=== PATIENT | male | born 1945 | race Caucasian/White ===

== ENCOUNTER 2018-10-23 15:25 | Inpatient (IN) | payer BC, MEDICARE ==
--- NOTE | 2018-10-23 15:42 | ER Document Report ---
ED Medical Screen (RME) - General Chief Complaint: Breathing Difficulty Stated Complaint: SORTNESS OF BREATH Time Seen by Provider: 10/23/18 15:40 Primary Care Provider: DIANNE TOUSSAINT MD [Primary Care Provider] - Follow up as needed Notes: 72-year-old male to the emergency department chief complaint of shortness of breath, cough, fever at home of 102. Currently on chemotherapy for lung cancer. Has history of A. fib as well. I have greeted and performed a rapid initial assessment of this patient. A comprehensive ED assessment and evaluation of the patient, analysis of test results and completion of the medical decision making process will be conducted by additional ED providers. TRAVEL OUTSIDE OF THE [place] IN LAST 30 DAYS: No - Related Data Allergies/Adverse Reactions: No Known Allergies Allergy (Unverified 10/23/18 15:34) Physical Exam - Vital signs Vitals: Temp Pulse Resp BP Pulse Ox 99.5 F 106 H 24 H 140/59 H 98 10/23/18 15:30 10/23/18 15:30 10/23/18 15:30 10/23/18 15:30 10/23/18 15:30 Course - Vital Signs Vital signs: Temp Pulse Resp BP Pulse Ox 99.5 F 106 H 24 H 140/59 H 98 10/23/18 15:30 10/23/18 15:30 10/23/18 15:30 10/23/18 15:30 10/23/18 15:30 Doctor's Discharge - Discharge Referrals: DIANNE TOUSSAINT MD [Primary Care Provider] - Follow up as needed
[2018-10-23 16:29] LABS: HEMATOCRIT 31.3 % (37.9-51.0); HEMOGLOBIN 10.8 g/dL (13.5-17.0); MEAN CORPUSCULAR HEMOGLOBIN 31.3 pg (27.0-33.4); MEAN CORPUSCULAR HGB CONC 34.5 g/dL (32.0-36.0); MEAN CORPUSCULAR VOLUME 91 fl (80-97); RED BLOOD COUNT 3.45 10^6/uL (4.35-5.55); RED CELL DISTRIBUTION WIDTH 19.1 % (11.5-14.0); WHITE BLOOD COUNT 6.3 10^3/uL (4.0-10.5)
[2018-10-23 16:36] LABS: ALANINE AMINOTRANSFERASE 29 U/L (21-72); ALBUMIN 4.5 g/dL (3.5-5.0); ALKALINE PHOSPHATASE 42 U/L (38-126); ANION GAP 15 (5-19); ASPARTATE AMINO TRANSFERASE 34 U/L (17-59); BILIRUBIN,DIRECT 0.3 mg/dL (0.0-0.4); BILIRUBIN,TOTAL 1.1 mg/dL (0.2-1.3); BLOOD UREA NITROGEN 21 mg/dL (7-20); CARBON DIOXIDE 25 mmol/L (22-30); CHLORIDE 95 mmol/L (98-107); GLUCOSE 181 mg/dL (75-110); POTASSIUM 3.5 mmol/L (3.6-5.0); SODIUM 134.9 mmol/L (137-145); TOTAL PROTEIN 7.4 g/dL (6.3-8.2)
[2018-10-23 16:40] LABS: A TYPE INFLUENZA AG NEGATIVE (NEGATIVE); B INFLUENZA AG NEGATIVE (NEGATIVE)
[2018-10-23 16:52] LABS: PLATELET COUNT 98 10^3/uL (150-450)
[2018-10-23 16:54] LABS: ABSOLUTE LYMPHOCYTES# (MANUAL) 0.6 10^3/uL (0.5-4.7); ABSOLUTE MONOCYTES # (MANUAL) 0.5 10^3/uL (0.1-1.4); ABSOLUTE NEUTROPHILS# (MANUAL) 5.2 10^3/uL (1.7-8.2); BAND NEUTROPHILS % (MANUAL) 2 % (3-5); BASOPHILS % (MANUAL) 0 % (0-2); EOSINOPHILS % (MANUAL) 0 % (0-6); LYMPHOCYTES % (MANUAL) 9 % (13-45); MONOCYTES % (MANUAL) 8 % (3-13); SEGMENTED NEUTROPHILS % (MAN) 81 % (42-78); TOTAL CELLS COUNTED 100
[2018-10-23 16:57] LABS: ANISOCYTOSIS 2+; OVALOCYTES SLIGHT; PLATELET COMMENT DECREASED; POIKILOCYTOSIS SLIGHT; POLYCHROMASIA SLIGHT
--- NOTE | 2018-10-23 17:00 | RADIOLOGY REPORT (SQ) ---
EXAM DESCRIPTION: CHEST SINGLE VIEW COMPLETED DATE/TIME: 10/23/2018 4:38 pm REASON FOR STUDY: sob COMPARISON: AP chest 08/28/2008 EXAM PARAMETERS: NUMBER OF VIEWS: One view. TECHNIQUE: Single frontal radiographic view of the chest acquired. RADIATION DOSE: NA LIMITATIONS: None. FINDINGS: LUNGS AND PLEURA: 3 to 4 cm mass versus infiltrate in the medial aspect right upper lobe a long the minor fissure. Remainder of the lungs are grossly clear. No pleural effusion. No pneumothorax. No pulmonary edema . MEDIASTINUM AND HILAR STRUCTURES: No masses. Contour normal. HEART AND VASCULAR STRUCTURES: Mild cardiomegaly BONES: No acute findings. HARDWARE: Left permanent central line tip superior vena cava OTHER: No other significant finding. IMPRESSION: Mass versus infiltrate medial right upper lobe No pulmonary edema, pleural effusion or pneumothorax TECHNICAL DOCUMENTATION: JOB ID: [id number] [employer]- All Rights Reserved Reading location - IP/workstation name: [email or web address]
[2018-10-23] MEDS ORDERED: NORMAL SALINE 1000 ML 1,000 ML IV ONE (17:22)
[2018-10-23] MEDS ORDERED: CEFEPIME 1 GM/D5W RTU 1 GM/50 ML RTUPB IV ONE (17:23)
[2018-10-23] MEDS ORDERED: VANCOMYCIN HCL INJ 1000 MG VIAL IV ONE (17:32)
--- NOTE | 2018-10-23 17:34 | ER Document Report ---
ED General - General Chief Complaint: Breathing Difficulty Stated Complaint: SORTNESS OF BREATH Time Seen by Provider: 10/23/18 15:40 Mode of Arrival: Stretcher Information source: Patient Notes: 72-year-old male with a history of diabetes, hypertension, lung cancer, atrial fibrillation who presents to the emergency room with shortness of breath, fever of 102 and cough for several days. Patient's last chemotherapy was 1 week ago (Tuesday). TRAVEL OUTSIDE OF THE [place] IN LAST 30 DAYS: No - HPI Onset: Last week Onset/Duration: Gradual Quality of pain: No pain Severity: None Pain Level: Denies Associated symptoms: Nonproductive cough, Fever, Shortness of breath Exacerbated by: Movement Relieved by: Remaining still Similar symptoms previously: Yes Recently seen / treated by doctor: Yes - Related Data Allergies/Adverse Reactions: No Known Allergies Allergy (Unverified 10/23/18 15:34) Past Medical History - General Information source: Patient - Social History Smoking Status: Former Smoker Cigarette use (# per day): No Chew tobacco use (# tins/day): No Frequency of alcohol use: Occasional Drug Abuse: None Lives with: Family Family History: None Patient has suicidal ideation: No Patient has homicidal ideation: No - Past Medical History Cardiac Medical History: Reports: Hx Hypertension Pulmonary Medical History: Reports: Other - Lung cancer EENT Medical History: Reports: None Neurological Medical History: Reports: None Endocrine Medical History: Reports: Hx Diabetes Mellitus Type 2 Renal/ Medical History: Reports: None. Denies: Hx Peritoneal Dialysis Malignancy Medical History: Reports Hx Lung Cancer GI Medical History: Reports: None Musculoskeletal Medical History: Reports None Skin Medical History: Reports None Psychiatric Medical History: Reports: None Traumatic Medical History: Reports: None Infectious Medical History: Reports: None Surgical Hx: Negative Review of Systems - Review of Systems Constitutional: Chills, Fever EENT: No symptoms reported Cardiovascular: denies: Chest pain, Palpitations, Heart racing Respiratory: Cough, Short of breath Gastrointestinal: No symptoms reported Genitourinary: No symptoms reported Male Genitourinary: No symptoms reported Musculoskeletal: No symptoms reported Skin: No symptoms reported Hematologic/Lymphatic: No symptoms reported Neurological/Psychological: No symptoms reported Physical Exam - Vital signs Vitals: Temp Pulse Resp BP Pulse Ox 99.5 F 106 H 24 H 140/59 H 98 10/23/18 15:30 10/23/18 15:30 10/23/18 15:30 10/23/18 15:30 10/23/18 15:30 Notes: Physical exam: GENERAL: A 72-year-old man, alert and oriented x3, does appear dyspneic HEAD: Atraumatic, normocephalic. EYES: Pupils equal round and reactive to light, extraocular movements intact, sclera anicteric, conjunctiva are normal. ENT: TMs normal, nares patent, oropharynx clear without exudates. dry mucous membranes. NECK: Normal range of motion, supple without obvious mass or JVD. LUNGS: Breath sounds clear to auscultation bilaterally and equal. No wheezes rales or rhonchi. HEART: Regular rate and rhythm without murmurs, rubs or gallops. ABDOMEN: Soft, normoactive bowel sounds. No tenderness to palpation. No guarding, no rebound. No masses appreciated. EXTREMITIES: Normal range of motion, no pitting or edema. No clubbing or cyanosis. NEUROLOGICAL: Cranial nerves II through XII grossly intact. Normal speech, moving all extremities. PSYCH: Normal mood, normal affect. SKIN: Warm, Dry, normal turgor, no rashes or lesions noted. Course - Re-evaluation Re-evalutation: 10/23/18 23:51 Note: This is a 72-year-old man with a history of lung cancer status post recent chemotherapy that is presenting with cough, shortness of breath, fever. Concern clearly is some postobstructive pneumonia in the setting of immune compromise. He does appear dehydrated at this time. Plan will be for IV fluids, IV antibiotics and admission. - Vital Signs Vital signs: Temp Pulse Resp BP Pulse Ox 98.8 F 82 20 110/52 L 99 10/23/18 21:22 10/23/18 21:22 10/23/18 21:22 10/23/18 21:22 10/23/18 21:22 - Laboratory Result Diagrams: 10/23/18 16:10 10/23/18 16:10 Laboratory results interpreted by me: 10/23/18 10/23/18 10/23/18 16:10 16:10 16:10 RBC 3.45 L Hgb 10.8 L Hct 31.3 L RDW 19.1 H Plt Count 98 L Seg Neuts % (Manual) 81 H Band Neutrophils % 2 L Lymphocytes % (Manual) 9 L Sodium 134.9 L Potassium 3.5 L Chloride 95 L BUN 21 H Glucose 181 H Lactic Acid 3.1 H - Diagnostic Test Radiology reviewed: Image reviewed, Reports reviewed - Chest x-ray shows right mass/infiltrate - EKG Interpretation by Me Rate: Normal Rhythm: NSR - EKG shows normal sinus rhythm with a ventricular rate of 91, no acute ST-T wave changes Critical Care Note - Critical Care Note Total time excluding time spent on procedures (mins): 60 Discharge - Discharge Clinical Impression: Pneumonia Condition: Stable Disposition: ADMITTED INPATIENT Admitting Provider: Hospitalist Ashleigh Arnold Unit Admitted: Telemetry
--- NOTE | 2018-10-23 18:22 | EKG REPORT ---
SEVERITY:- ABNORMAL ECG - SINUS RHYTHM PROBABLE LEFT ATRIAL ABNORMALITY PROLONGED QT INTERVAL : Confirmed by: Rebeka Mathews 23-Oct-2018 18:22:13
[2018-10-23] MEDS ORDERED: ACETAMINOPHEN 325 MG TABLET PO PRN (19:03)
[2018-10-23] MEDS ORDERED: NORMAL SALINE 1000 ML 1,000 ML IV PRN (19:03)
[2018-10-23] MEDS ORDERED: IPRATROPIUM/ALBUTEROL 0.5-2.5 MG/3 ML AMPUL NEB PRN (19:03)
[2018-10-23] MEDS ORDERED: HYDRALAZINE HCL INJ/PF 20 MG/1 ML SDV IV PRN (19:13)
[2018-10-23] MEDS ORDERED: POTASSIUM CHLORIDE 10 MEQ CAPSULE.ER PO ONE (19:27)
--- NOTE | 2018-10-23 19:30 | PDOC H&P ---
History of Present Illness Admission Date/PCP: 10/23/18 17:38 RUBEN SINCLAIR NP Patient complains of: Short of breath History of Present Illness: DUC HERNANDEZ is a 72 year old male with a past medical history of hypertension, diabetes type 2, hyperlipidemia and lung cancer, who presented to the ED complaining of shortness of breath and congestion for a few days. Patient states that he started coughing a few days ago and it worsened. That he also has been having fevers for the last few days and even over a week but it has been intermittent. States his temperature this morning was 103F and hence he came to the ER for evaluation because his cancer doctor told him to do so. He is not a good historian but he is able to tell me that he has a history of lung cancer and is being treated at [facility] by his oncologist. He had chemo about 2 weeks ago. He does not know the name of the chemotherapy that was used. At this time he is feeling more short of breath and having some dyspnea with exertion. Fortunately he is not requiring any oxygen. He had a chest x-ray in the ED which shows a mass versus infiltrate on the right upper lobe. Unfortunately that is where his cancer is also. But given his symptoms he suspected that he has pneumonia and hence hospitalist were consulted. Past Medical History Cardiac Medical History: Reports: Hyperlipidema, Hypertension Endocrine Medical History: Reports: Diabetes Mellitus Type 2 Social History Information Source: Patient Smoking Status: Former Smoker - Advance Directive Resuscitation Status: Full Code Surrogate healthcare decision maker:: Brother Family History Parental Family History Reviewed: Yes Children Family History Reviewed: Unknown Sibling(s) Family History Reviewed.: Unknown Medication/Allergy Home Medications: Amlodipine Besylate [Norvasc 5 mg Tablet] 5 mg PO DAILY 10/23/18 Hydrochlorothiazide [Hydrodiuril 25 mg Tablet] 25 mg PO QAM 10/23/18 Losartan Potassium [Cozaar 100 mg Tablet] 100 mg PO DAILY 10/23/18 Simvastatin [Zocor 20 mg Tablet] 20 mg PO QHS 10/23/18 Allergies/Adverse Reactions: No Known Allergies Allergy (Unverified 10/23/18 15:34) Review of Systems All systems: reviewed and no additional remarkable complaints except as stated Constitutional: PRESENT: chills, fever(s) Eyes: ABSENT: visual disturbances Ears: ABSENT: hearing changes Nose, Mouth, and Throat: ABSENT: headache(s) Cardiovascular: PRESENT: dyspnea on exertion. ABSENT: edema Respiratory: PRESENT: cough, dyspnea Gastrointestinal: ABSENT: abdominal pain, nausea, vomiting Genitourinary: ABSENT: dysuria Musculoskeletal: ABSENT: joint swelling Integumentary: ABSENT: wounds Neurological: ABSENT: abnormal movements, frequent falls, vertigo Endocrine: ABSENT: polyuria Hematologic/Lymphatic: ABSENT: easy bruising Physical Exam Vital Signs: Temp Pulse Resp BP Pulse Ox 99.9 F 106 H 18 120/75 97 10/23/18 17:37 10/23/18 15:30 10/23/18 19:01 10/23/18 19:00 10/23/18 19:01 Intake & Output 10/22/18 10/23/18 10/24/18 06:59 06:59 06:59 Intake Total 50 Balance 50 Weight 221 lb 9.033 oz General appearance: PRESENT: no acute distress Head exam: PRESENT: atraumatic, normocephalic Eye exam: PRESENT: EOMI. ABSENT: conjunctival injection, scleral icterus Ear exam: PRESENT: normal external ear exam Mouth exam: PRESENT: moist, tongue midline Neck exam: ABSENT: tracheal deviation Respiratory exam: PRESENT: decreased breath sounds - Decreased on the right side lower base, symmetrical. ABSENT: wheezes Cardiovascular exam: PRESENT: +S1, +S2 Pulses: PRESENT: +2 pedal pulses bilateral GI/Abdominal exam: PRESENT: normal bowel sounds, soft. ABSENT: tenderness Extremities exam: ABSENT: pedal edema Neurological exam: PRESENT: alert, awake, oriented to person, oriented to place, CN II-XII grossly intact Skin exam: PRESENT: dry, warm Results Laboratory Results: 10/23/18 16:10 10/23/18 16:10 10/23/18 10/23/18 10/23/18 16:10 16:10 16:10 WBC 6.3 RBC 3.45 L Hgb 10.8 L Hct 31.3 L MCV 91 MCH 31.3 MCHC 34.5 RDW 19.1 H Plt Count 98 L Seg Neutrophils % Not Reportable Lymphocytes % Not Reportable Monocytes % Not Reportable Eosinophils % Not Reportable Basophils % Not Reportable Absolute Neutrophils Not Reportable Absolute Lymphocytes Not Reportable Absolute Monocytes Not Reportable Absolute Eosinophils Not Reportable Absolute Basophils Not Reportable Sodium 134.9 L Potassium 3.5 L Chloride 95 L Carbon Dioxide 25 Anion Gap 15 BUN 21 H Creatinine 1.00 Est GFR ( Amer) > 60 Est GFR (Non-Af Amer) > 60 Glucose 181 H Lactic Acid 3.1 H Calcium 9.0 Total Bilirubin 1.1 AST 34 ALT 29 Alkaline Phosphatase 42 Total Protein 7.4 Albumin 4.5 Impressions: Chest X-Ray 10/23/18 15:53 IMPRESSION: Mass versus infiltrate medial right upper lobe No pulmonary edema, pleural effusion or pneumothorax Assessment & Plan - Diagnosis (1) Pneumonia Is this a current diagnosis for this admission?: Yes (2) Essential hypertension Is this a current diagnosis for this admission?: Yes (3) Hyperlipemia Is this a current diagnosis for this admission?: Yes (4) Lung cancer Is this a current diagnosis for this admission?: Yes (5) Hyponatremia Is this a current diagnosis for this admission?: Yes (6) Hypokalemia Is this a current diagnosis for this admission?: Yes (7) Generalized weakness Is this a current diagnosis for this admission?: Yes (8) Pancytopenia due to chemotherapy Is this a current diagnosis for this admission?: Yes - Time Time Spent: Greater than 70 Minutes - Inpatient Certification Based on my medical assessment, after consideration of the patient's comorbidities, presenting symptoms, or acuity I expect that the services needed warrant INPATIENT care.: Yes I certify that my determination is in accordance with my understanding of Medicare's requirements for reasonable and necessary INPATIENT services [42 CFR 412.3e].: Yes Medical Necessity: Need Close Monitoring Due to Risk of Patient Decompensation, Need For IV Fluids, Need For Continuous Telemetry Monitoring, Risk of Complication if Not Cared For in Hospital - Plan Summary Plan Summary: Pneumonia-patient complaining of cough, fevers and shortness of breath, lactic acid greater than 3.1. Although his white count is not elevated he did receive chemo about 2 weeks ago. He has a history of lung cancer and is receiving chemo at [facility]. At this point I will start him on broad-spectrum antibiotics. Cefepime and vancomycin. Blood cultures are drawn and pending. Chest x-ray does show some right upper lobe mass versus infiltrate. Difficult to tell whether this is infiltrate or mass since his lung cancer is also on the right upper lobe. Lung cancer-he follows up with oncology at [facility]. I have consulted and spoke with and she will be seeing patient tomorrow. I will try my best to get his records from [facility]. Pancytopenia-most likely secondary to chemo. Hyponatremia-most likely from dehydration-we will start him on gentle hydration overnight Hypokalemia-will replete as needed. Hypertension-medications not reconciled-we will place hydralazine as needed order Hyperlipidemia-noted Generalized weakness-we will consider getting physical therapy evaluation once he is a little bit improved from his pneumonia
[2018-10-23] MEDS: GUAIFENESIN 600 MG TABLET.SA PO SCH (22:44)
[2018-10-23] MEDS: HEPARIN SOD (PORCINE) 5,000 UNIT/ML 1 ML SYRINGE SUBCUT SCH (22:44)
[2018-10-23] MEDS: FAMOTIDINE 20 MG TABLET PO SCH (22:44)
[2018-10-24 00:46] LABS: APPEARANCE,URINE SLIGHTLY-CLOUDY; BILIRUBIN,URINE NEGATIVE (NEGATIVE); COLOR,URINE YELLOW; GLUCOSE, URINE NEGATIVE (NEGATIVE); KETONES,URINE NEGATIVE (NEGATIVE); LEUKOCYTE ESTERASE,URINE TRACE (NEGATIVE); NITRITE,URINE NEGATIVE (NEGATIVE); PROTEIN,URINE 30 mg/dL (NEGATIVE); URINE SPECIFIC GRAVITY 1.011; UROBILINOGEN,URINE NEGATIVE mg/dL (<2.0)
[2018-10-24] MEDS ORDERED: CEFEPIME 1 GM/D5W RTU 1 GM/50 ML RTUPB IV ONE (02:45)
[2018-10-24] MEDS: CEFEPIME 1 GM/D5W RTU 1 GM/50 ML RTUPB IV SCH ×2 (06:23→18:14)
[2018-10-24] MEDS: HEPARIN SOD (PORCINE) 5,000 UNIT/ML 1 ML SYRINGE SUBCUT SCH ×3 (06:24→22:04)
[2018-10-24 06:39] LABS: ABSOLUTE LYMPHOCYTES (AUTO) 0.8 10^3/uL (0.5-4.7); ABSOLUTE MONOCYTES (AUTO) 1.3 10^3/uL (0.1-1.4); ABSOLUTE NEUT (AUTO) 5.7 10^3/uL (1.7-8.2); BASOPHILS % (AUTO) 0.1 % (0-2); EOSINOPHILS % (AUTO) 0.1 % (0-6); HEMATOCRIT 26.1 % (37.9-51.0); HEMOGLOBIN 9.2 g/dL (13.5-17.0); LYMPHOCYTES % (AUTO) 9.7 % (13-45); MEAN CORPUSCULAR HEMOGLOBIN 31.8 pg (27.0-33.4); MEAN CORPUSCULAR HGB CONC 35.2 g/dL (32.0-36.0); MEAN CORPUSCULAR VOLUME 91 fl (80-97); MONOCYTES % (AUTO) 16.4 % (3-13); RED BLOOD COUNT 2.88 10^6/uL (4.35-5.55); RED CELL DISTRIBUTION WIDTH 19.4 % (11.5-14.0); SEGMENTED NEUTROPHILS % (AUTO) 73.7 % (42-78); TOTAL CELLS COUNTED % (AUTO) 100 %; WHITE BLOOD COUNT 7.8 10^3/uL (4.0-10.5)
[2018-10-24] MEDS ORDERED: VANCOMYCIN HCL 1,500 MG in DEXTROSE 5%-WATER 250 ML IV SCH (07:00)
[2018-10-24 07:03] LABS: PLATELET COUNT 83 10^3/uL (150-450)
[2018-10-24 07:15] LABS: ANION GAP 6 (5-19); BLOOD UREA NITROGEN 18 mg/dL (7-20); CALCIUM 8.6 mg/dL (8.4-10.2); CARBON DIOXIDE 29 mmol/L (22-30); CHLORIDE 102 mmol/L (98-107); GLUCOSE 131 mg/dL (75-110); POTASSIUM 3.7 mmol/L (3.6-5.0); SODIUM 136.8 mmol/L (137-145)
--- NOTE | 2018-10-24 09:20 | PDOC CONSULTATION ---
Consultation Consult Date: 10/24/18 Consult reason:: Hematology/Oncology consulatation was requested for patient actively undergoing treatment for lung cancer. History of Present Illness Admission Date/PCP: 10/23/18 17:38 RUBEN SINCLAIR NP History of Present Illness: DUC HERNANDEZ is a 72 year old male who states that he was initially diagnosed with bladder and prostate cancers in 2009. These were treated, but in March 2018, during routine surveillance CT scans, a new lung lesion was found. It was determined that this was a new primary and he has just completed chemotherapy with a doublet, but he is unsure which 2 drugs. He is scheduled to begin immunotherapy later this week. He is seeing a physician at [facility] Past Medical History Cardiac Medical History: Reports: Hyperlipidema, Hypertension Pulmonary Medical History: Reports: Other - Lung cancer EENT Medical History: Reports: None Neurological Medical History: Reports: None Endocrine Medical History: Reports: Diabetes Mellitus Type 2 Renal/ Medical History: Reports: None Malignancy Medical History: Reports: Lung Cancer, Other - Bladder and prostate cancer GI Medical History: Reports: None Musculoskeltal Medical History: Reports: None Skin Medical History: Reports: None Psychiatric Medical History: Reports: None Denies: Depression Traumatic Medical History: Reports: None Infectious Medical History: Reports: None Past Surgical History Past Surgical History: Reports: Other - ORIF ankle, knee surgery, prostatectomy, bladder surgery, lung resection Social History Lives with: Family Smoking Status: Former Smoker Last Time Smoked: 2009 Frequency of Alcohol Use: Rare Hx Recreational Drug Use: No Drugs: None Hx Prescription Drug Abuse: No Past Social History Note: with 1 child. Retired restaurant civil structural designer. Cat at home. - Advance Directive Resuscitation Status: Full Code Family History Family History: None Parental Family History Reviewed: Yes - Father age 43 Cirrhosis. Mother of alzheimers Children Family History Reviewed: No Sibling(s) Family History Reviewed.: Yes - 2 sisters with unknown cancers Medication/Allergy Home Medications: Amlodipine Besylate [Norvasc 5 mg Tablet] 5 mg PO DAILY 10/23/18 Hydrochlorothiazide [Hydrodiuril 25 mg Tablet] 25 mg PO QAM 10/23/18 Losartan Potassium [Cozaar 100 mg Tablet] 100 mg PO DAILY 10/23/18 Metformin HCl 1,000 mg PO BID 10/23/18 Simvastatin [Zocor 20 mg Tablet] 20 mg PO QHS 10/23/18 Allergies/Adverse Reactions: No Known Allergies Allergy (Unverified 10/23/18 15:34) Review of Systems Constitutional: PRESENT: fever(s). ABSENT: headache(s) Eyes: ABSENT: visual disturbances Ears: ABSENT: hearing changes Nose, Mouth, and Throat: ABSENT: sore throat Cardiovascular: ABSENT: chest pain Respiratory: PRESENT: dyspnea Gastrointestinal: ABSENT: diarrhea, nausea Genitourinary: ABSENT: dysuria Integumentary: ABSENT: rash Neurological: ABSENT: dizziness, weakness Hematologic/Lymphatic: ABSENT: lymphadenopathy Physical Exam Vital Signs: Temp Pulse Resp BP Pulse Ox 98.2 F 71 18 101/47 L 94 10/24/18 07:19 10/24/18 08:13 10/24/18 08:13 10/24/18 07:19 10/24/18 08:13 Intake & Output 10/23/18 10/24/18 10/25/18 06:59 06:59 06:59 Intake Total 1050 50 Balance 1050 50 Weight 101.2 kg General appearance: PRESENT: no acute distress, well-developed, well-nourished Exam: 72 year old male. Head exam: PRESENT: normocephalic Eye exam: PRESENT: EOMI Mouth exam: PRESENT: tongue midline Neck exam: ABSENT: lymphadenopathy, tenderness Respiratory exam: PRESENT: clear to auscultation javad, unlabored Cardiovascular exam: PRESENT: RRR GI/Abdominal exam: PRESENT: soft. ABSENT: tenderness Extremities exam: ABSENT: pedal edema Neurological exam: PRESENT: alert, awake, oriented to person, oriented to place, oriented to time, oriented to situation Psychiatric exam: PRESENT: appropriate affect Skin exam: PRESENT: normal color Results Laboratory Results: 10/24/18 06:08 10/24/18 06:08 10/23/18 10/23/18 10/23/18 16:10 16:10 16:10 WBC 6.3 RBC 3.45 L Hgb 10.8 L Hct 31.3 L MCV 91 MCH 31.3 MCHC 34.5 RDW 19.1 H Plt Count 98 L Seg Neutrophils % Not Reportable Lymphocytes % Not Reportable Monocytes % Not Reportable Eosinophils % Not Reportable Basophils % Not Reportable Absolute Neutrophils Not Reportable Absolute Lymphocytes Not Reportable Absolute Monocytes Not Reportable Absolute Eosinophils Not Reportable Absolute Basophils Not Reportable Sodium 134.9 L Potassium 3.5 L Chloride 95 L Carbon Dioxide 25 Anion Gap 15 BUN 21 H Creatinine 1.00 Est GFR ( Amer) > 60 Est GFR (Non-Af Amer) > 60 Glucose 181 H Lactic Acid 3.1 H Calcium 9.0 Total Bilirubin 1.1 AST 34 ALT 29 Alkaline Phosphatase 42 Total Protein 7.4 Albumin 4.5 Urine Color Urine Appearance Urine pH Ur Specific [place] Urine Protein Urine Glucose (UA) Urine Ketones Urine Blood Urine Nitrite Ur Leukocyte Esterase Urine WBC (Auto) Urine RBC (Auto) 10/23/18 10/24/18 10/24/18 21:35 00:25 00:58 WBC RBC Hgb Hct MCV MCH MCHC RDW Plt Count Seg Neutrophils % Lymphocytes % Monocytes % Eosinophils % Basophils % Absolute Neutrophils Absolute Lymphocytes Absolute Monocytes Absolute Eosinophils Absolute Basophils Sodium Potassium Chloride Carbon Dioxide Anion Gap BUN Creatinine Est GFR ( Amer) Est GFR (Non-Af Amer) Glucose Lactic Acid 1.6 1.2 Calcium Total Bilirubin AST ALT Alkaline Phosphatase Total Protein Albumin Urine Color YELLOW Urine Appearance SLIGHTLY-CLOUDY Urine pH 8.0 Ur Specific [place] 1.011 Urine Protein 30 H Urine Glucose (UA) NEGATIVE Urine Ketones NEGATIVE Urine Blood SMALL H Urine Nitrite NEGATIVE Ur Leukocyte Esterase TRACE H Urine WBC (Auto) 3 Urine RBC (Auto) 1 10/24/18 10/24/18 06:08 06:08 WBC 7.8 RBC 2.88 L Hgb 9.2 L Hct 26.1 L MCV 91 MCH 31.8 MCHC 35.2 RDW 19.4 H Plt Count 83 L Seg Neutrophils % 73.7 Lymphocytes % 9.7 L Monocytes % 16.4 H Eosinophils % 0.1 Basophils % 0.1 Absolute Neutrophils 5.7 Absolute Lymphocytes 0.8 Absolute Monocytes 1.3 Absolute Eosinophils 0.0 Absolute Basophils 0.0 Sodium 136.8 L Potassium 3.7 Chloride 102 Carbon Dioxide 29 Anion Gap 6 BUN 18 Creatinine 0.97 Est GFR ( Amer) > 60 Est GFR (Non-Af Amer) > 60 Glucose 131 H Lactic Acid Calcium 8.6 Total Bilirubin AST ALT Alkaline Phosphatase Total Protein Albumin Urine Color Urine Appearance Urine pH Ur Specific [place] Urine Protein Urine Glucose (UA) Urine Ketones Urine Blood Urine Nitrite Ur Leukocyte Esterase Urine WBC (Auto) Urine RBC (Auto) Impressions: Chest X-Ray 10/23/18 15:53 IMPRESSION: Mass versus infiltrate medial right upper lobe No pulmonary edema, pleural effusion or pneumothorax Assessment & Plan - Diagnosis (1) Lung cancer Is this a current diagnosis for this admission?: Yes Plan: I am trying to obtain medical records for more detail as to treatment, stage, and type of cancer. (2) Fever Qualifiers: Fever type: unspecified Qualified Code(s): R50.9 - Fever, unspecified Is this a current diagnosis for this admission?: Yes Plan: Agree with cultures and antibiotics. Unclear at this time if this is due to infection or to chemo agents. Patient is not currently neutropenic, so would treat as per community acquired. Flu screen was negative. I will stop the vanc and change cefapime as soon as cultures are back.
[2018-10-24] MEDS: GUAIFENESIN 600 MG TABLET.SA PO SCH ×2 (11:11→22:06)
[2018-10-24] MEDS: FAMOTIDINE 20 MG TABLET PO SCH ×2 (11:11→22:06)
[2018-10-24] MEDS ORDERED: VANCOMYCIN HCL 0 MG in DEXTROSE 5%-WATER 250 ML IV NR (16:00)
[2018-10-24] MEDS ORDERED: DEXTROSE 50%-WATER SYRINGE 25 GM/50 ML DOSE IV PRN (17:00)
[2018-10-24] MEDS ORDERED: DEXTROSE 50%-WATER SYRINGE 12.5 GM/25 ML DOSE IV PRN (17:00)
[2018-10-24] MEDS ORDERED: GLUCAGON,HUMAN RECOMB 1 MG INJ IM PRN (17:00)
[2018-10-24] MEDS ORDERED: DEXTROSE 40% GEL 15 GM TUBE PO PRN (17:00)
[2018-10-24] MEDS ORDERED: DEXTROSE 40% GEL 15 GM TUBE X 2 PO PRN (17:00)
[2018-10-24] MEDS ORDERED: INSULIN LISPRO 100 UNIT/ML 3 ML VIAL SUBCUT ONE (18:00)
--- NOTE | 2018-10-24 18:23 | RADIOLOGY REPORT (SQ) ---
EXAM DESCRIPTION: CHEST SINGLE VIEW COMPLETED DATE/TIME: 10/24/2018 5:52 pm REASON FOR STUDY: Pneumonia, chest mass COMPARISON: Previous day. NUMBER OF VIEWS: One view. TECHNIQUE: Single frontal radiographic image of the chest acquired. LIMITATIONS: None. FINDINGS: LUNGS AND PLEURA: Slight improved aeration left lower lobe. Unchanged right lung mass. MEDIASTINUM AND HEART: Stable heart size and mediastinal structures. SUPPORT DEVICES: Appropriate location without change. BONY STRUCTURES: No acute findings. HARDWARE: None. OTHER: No other significant finding. IMPRESSION: Improving pneumonia left lower lobe. Reading location - IP/workstation name: [email or web address]
[2018-10-24] MEDS ORDERED: GUAIFENESIN/D-METHORPHAN (200-20 MG) SYRUP 10 ML PO PRN (18:36)
[2018-10-24] MEDS: INSULIN LISPRO 100 UNIT/ML 3 ML VIAL SUBCUT SCH (22:04)
--- NOTE | 2018-10-24 23:22 | PDOC PROGRESS REPORT ---
Subjective Progress Note for:: 10/24/18 Subjective:: Patient is feeling somewhat better. Still with a cough. Worried about his diabetes as well as his pressure. Reason For Visit: PNEUMONIA Physical Exam Vital Signs: Temp Pulse Resp BP Pulse Ox 98.7 F 53 L 18 110/61 96 10/24/18 20:42 10/24/18 20:42 10/24/18 20:42 10/24/18 20:42 10/24/18 20:42 Intake & Output 10/23/18 10/24/18 10/25/18 06:59 06:59 06:59 Intake Total 1050 4300 Output Total 1820 Balance 1050 2480 Weight 101.2 kg General appearance: PRESENT: no acute distress, cooperative Head exam: PRESENT: normocephalic Respiratory exam: PRESENT: symmetrical, unlabored. ABSENT: accessory muscle use, rales, rhonchi, wheezes Cardiovascular exam: PRESENT: RRR, +S1, +S2 GI/Abdominal exam: PRESENT: normal bowel sounds, soft. ABSENT: distended, tenderness Extremities exam: ABSENT: pedal edema Neurological exam: PRESENT: alert, awake, oriented to person, oriented to place, oriented to time, oriented to situation, CN II-XII grossly intact Psychiatric exam: PRESENT: appropriate affect, normal mood. ABSENT: agitated, anxious Focused psych exam: ABSENT: restlessness Results Laboratory Results: 10/24/18 06:08 10/24/18 06:08 10/24/18 10/24/18 10/24/18 00:25 00:58 06:08 WBC 7.8 RBC 2.88 L Hgb 9.2 L Hct 26.1 L MCV 91 MCH 31.8 MCHC 35.2 RDW 19.4 H Plt Count 83 L Seg Neutrophils % 73.7 Lymphocytes % 9.7 L Monocytes % 16.4 H Eosinophils % 0.1 Basophils % 0.1 Absolute Neutrophils 5.7 Absolute Lymphocytes 0.8 Absolute Monocytes 1.3 Absolute Eosinophils 0.0 Absolute Basophils 0.0 Sodium Potassium Chloride Carbon Dioxide Anion Gap BUN Creatinine Est GFR ( Amer) Est GFR (Non-Af Amer) Glucose Lactic Acid 1.2 Calcium Urine Color YELLOW Urine Appearance SLIGHTLY-CLOUDY Urine pH 8.0 Ur Specific [place] 1.011 Urine Protein 30 H Urine Glucose (UA) NEGATIVE Urine Ketones NEGATIVE Urine Blood SMALL H Urine Nitrite NEGATIVE Ur Leukocyte Esterase TRACE H Urine WBC (Auto) 3 Urine RBC (Auto) 1 10/24/18 06:08 WBC RBC Hgb Hct MCV MCH MCHC RDW Plt Count Seg Neutrophils % Lymphocytes % Monocytes % Eosinophils % Basophils % Absolute Neutrophils Absolute Lymphocytes Absolute Monocytes Absolute Eosinophils Absolute Basophils Sodium 136.8 L Potassium 3.7 Chloride 102 Carbon Dioxide 29 Anion Gap 6 BUN 18 Creatinine 0.97 Est GFR ( Amer) > 60 Est GFR (Non-Af Amer) > 60 Glucose 131 H Lactic Acid Calcium 8.6 Urine Color Urine Appearance Urine pH Ur Specific [place] Urine Protein Urine Glucose (UA) Urine Ketones Urine Blood Urine Nitrite Ur Leukocyte Esterase Urine WBC (Auto) Urine RBC (Auto) Impressions: Chest X-Ray 10/24/18 00:00 IMPRESSION: Improving pneumonia left lower lobe. Assessment & Plan - Diagnosis (1) Pneumonia Qualifiers: Pneumonia type: due to methicillin-resistant Staphylococcus aureus (MRSA) Is this a current diagnosis for this admission?: Yes Plan: Continue current antibiotic regimen. The patient is clinically improving. Unfortunately due to recent leukopenia it is difficult to estimate his improvement based on white blood cell count. He has been afebrile. (2) Lung cancer Qualifiers: Laterality: right Is this a current diagnosis for this admission?: Yes Plan: The patient was seen by Dr. Sandhu. She is trying to get medical records. He had recent chemotherapy and she will likely discuss with his primary oncologist the patient's current status. (3) Diabetes mellitus type 2, controlled Qualifiers: Diabetes mellitus longterm insulin use: with adjunct faculty for medical terminology use Diabetes mellitus complication status: without complication Qualified Code(s): E11.9 - Type 2 diabetes mellitus without complications; Z79.4 - terminal block assembler (current) use of insulin Is this a current diagnosis for this admission?: Yes Plan: I will add back his metformin at 500 mg twice daily which is half of his normal dose. He is also on a sliding scale. I will review the Accu-Cheks and increase the metformin back to 1 g twice daily if appropriate. - Time Time Spent with patient: 25-34 minutes - During the encounter the patient did call his daughter who is a nurse in [place]. All questions were answered. She is in agreement with the current plan. Medications reviewed and adjusted accordingly: Yes Anticipated discharge: Home
[2018-10-25] MEDS: HEPARIN SOD (PORCINE) 5,000 UNIT/ML 1 ML SYRINGE SUBCUT SCH ×2 (06:21→14:53)
[2018-10-25] MEDS: CEFEPIME 1 GM/D5W RTU 1 GM/50 ML RTUPB IV SCH (06:23)
[2018-10-25 07:33] LABS: ABSOLUTE LYMPHOCYTES (AUTO) 0.8 10^3/uL (0.5-4.7); ABSOLUTE MONOCYTES (AUTO) 0.9 10^3/uL (0.1-1.4); ABSOLUTE NEUT (AUTO) 5.8 10^3/uL (1.7-8.2); BASOPHILS % (AUTO) 0.2 % (0-2); EOSINOPHILS % (AUTO) 0.3 % (0-6); HEMOGLOBIN 9.3 g/dL (13.5-17.0); LYMPHOCYTES % (AUTO) 10.3 % (13-45); MEAN CORPUSCULAR HEMOGLOBIN 32.1 pg (27.0-33.4); MEAN CORPUSCULAR HGB CONC 35.6 g/dL (32.0-36.0); MEAN CORPUSCULAR VOLUME 90 fl (80-97); MONOCYTES % (AUTO) 12.4 % (3-13); RED BLOOD COUNT 2.89 10^6/uL (4.35-5.55); RED CELL DISTRIBUTION WIDTH 19.8 % (11.5-14.0); SEGMENTED NEUTROPHILS % (AUTO) 76.8 % (42-78); TOTAL CELLS COUNTED % (AUTO) 100 %; WHITE BLOOD COUNT 7.5 10^3/uL (4.0-10.5)
[2018-10-25 07:37] LABS: ANION GAP 9 (5-19); BLOOD UREA NITROGEN 17 mg/dL (7-20); CALCIUM 8.5 mg/dL (8.4-10.2); CARBON DIOXIDE 23 mmol/L (22-30); CHLORIDE 104 mmol/L (98-107); GLUCOSE 123 mg/dL (75-110); POTASSIUM 3.7 mmol/L (3.6-5.0); SODIUM 136.2 mmol/L (137-145)
[2018-10-25] MEDS: INSULIN LISPRO 100 UNIT/ML 3 ML VIAL SUBCUT SCH ×2 (07:51→12:13)
[2018-10-25] MEDS ORDERED: METFORMIN HCL 500 MG TABLET PO SCH (08:00)
[2018-10-25 08:05] LABS: PLATELET COUNT 83 10^3/uL (150-450)
--- NOTE | 2018-10-25 08:56 | PDOC PROGRESS REPORT ---
Subjective Progress Note for:: 10/25/18 Subjective:: No acute events overnight, pt feeling better Reason For Visit: PNEUMONIA Physical Exam Vital Signs: Temp Pulse Resp BP Pulse Ox 97.6 F 73 22 H 98/76 L 99 10/25/18 07:57 10/25/18 07:57 10/25/18 07:57 10/25/18 07:57 10/25/18 07:57 Intake & Output 10/24/18 10/25/18 10/26/18 06:59 06:59 06:59 Intake Total 1050 4300 50 Output Total 1820 Balance 1050 2480 50 Weight 101.2 kg 102.7 kg General appearance: PRESENT: no acute distress, well-developed, well-nourished Head exam: PRESENT: atraumatic, normocephalic Eye exam: PRESENT: conjunctiva pink, EOMI, PERRLA. ABSENT: scleral icterus Ear exam: PRESENT: normal external ear exam Mouth exam: PRESENT: moist, tongue midline Neck exam: ABSENT: carotid bruit, JVD, lymphadenopathy, thyromegaly Respiratory exam: PRESENT: clear to auscultation javad. ABSENT: rales, rhonchi, wheezes Cardiovascular exam: PRESENT: RRR. ABSENT: diastolic murmur, rubs, systolic murmur Pulses: PRESENT: normal dorsalis pedis pul Vascular exam: PRESENT: normal capillary refill GI/Abdominal exam: PRESENT: normal bowel sounds, soft. ABSENT: distended, guarding, mass, organolmegaly, rebound, tenderness Rectal exam: PRESENT: deferred Extremities exam: PRESENT: full ROM. ABSENT: calf tenderness, clubbing, pedal edema Neurological exam: PRESENT: alert, awake, oriented to person, oriented to place, oriented to time, oriented to situation, CN II-XII grossly intact. ABSENT: motor sensory deficit Psychiatric exam: PRESENT: appropriate affect, normal mood. ABSENT: homicidal ideation, suicidal ideation Skin exam: PRESENT: dry, intact, warm. ABSENT: cyanosis, rash Results Laboratory Results: 10/25/18 06:43 10/25/18 06:43 10/25/18 10/25/18 06:43 06:43 WBC 7.5 RBC 2.89 L Hgb 9.3 L Hct 26.0 L MCV 90 MCH 32.1 MCHC 35.6 RDW 19.8 H Plt Count 83 L Seg Neutrophils % 76.8 Lymphocytes % 10.3 L Monocytes % 12.4 Eosinophils % 0.3 Basophils % 0.2 Absolute Neutrophils 5.8 Absolute Lymphocytes 0.8 Absolute Monocytes 0.9 Absolute Eosinophils 0.0 Absolute Basophils 0.0 Sodium 136.2 L Potassium 3.7 Chloride 104 Carbon Dioxide 23 Anion Gap 9 BUN 17 Creatinine 0.87 Est GFR ( Amer) > 60 Est GFR (Non-Af Amer) > 60 Glucose 123 H Calcium 8.5 Magnesium 2.1 Impressions: Chest X-Ray 10/24/18 00:00 IMPRESSION: Improving pneumonia left lower lobe. Assessment & Plan - Diagnosis (1) Pneumonia Qualifiers: Pneumonia type: due to methicillin-resistant Staphylococcus aureus (MRSA) Is this a current diagnosis for this admission?: Yes Plan: Con't current rx w/ atbx per hospitalist team. Will follow (2) Pancytopenia due to chemotherapy Is this a current diagnosis for this admission?: Yes Plan: Counts stable post chemo, cont to monitor (3) Lung cancer Qualifiers: Laterality: right Is this a current diagnosis for this admission?: Yes Plan: Getting treated at [facility], offered our services to help w/ local care, pt will think about it. Will follow as inpt. Awaiting records from [facility] - Time Time Spent with patient: 35 or more minutes - Inpatient Certification Based on my medical assessment, after consideration of the patient's comorbidities, presenting symptoms, or acuity I expect that the services needed warrant INPATIENT care.: Yes I certify that my determination is in accordance with my understanding of Medicare's requirements for reasonable and necessary INPATIENT services [42 CFR 412.3e].: Yes Medical Necessity: Need for IV Antibiotics
[2018-10-25] MEDS: GUAIFENESIN 600 MG TABLET.SA PO SCH (09:23)
[2018-10-25] MEDS: FAMOTIDINE 20 MG TABLET PO SCH (09:23)
[2018-10-25] MEDS ORDERED: POTASSIUM CHLORIDE 10 MEQ CAPSULE.ER PO SCH (10:00)
[2018-10-25 15:44] VITALS: BP 110/52
--- NOTE | 2018-10-25 22:11 | PDOC DISCHARGE SUMMARY ---
General - Admit/Disc Date/PCP Admission Date/Primary Care Provider: 10/23/18 17:38 RUBEN SINCLAIR NP Discharge Date: 10/25/18 - Discharge Diagnosis (1) Pneumonia Is this a current diagnosis for this admission?: Yes Summary: Resolved. The patient had just finished chemotherapy 2 weeks ago. He was treated with cefepime and responded quite well. At the time of discharge his breathing was comfortable and he did not require supplemental oxygen. He will complete therapy with levofloxacin as an outpatient. (2) Lung cancer Is this a current diagnosis for this admission?: Yes Summary: Follow-up with oncology as previously scheduled. (3) Diabetes mellitus type 2, controlled Is this a current diagnosis for this admission?: Yes Summary: Resume metformin therapy. (4) Essential hypertension Is this a current diagnosis for this admission?: Yes Summary: No changes in regimen. Continue amlodipine. (5) Hyperlipemia Is this a current diagnosis for this admission?: Yes Summary: No changes in regimen. Continue statin therapy. - Additional Information Resuscitation Status: Full Code Discharge Diet: Cardiac Discharge Activity: Activity As Tolerated Prescriptions: Levofloxacin [Levaquin 500 mg Tablet] 500 mg PO DAILY 7 Days #7 tablet Potassium Chloride 20 meq PO DAILY 30 Days #30 tab.er.prt Home Medications: Amlodipine Besylate [Norvasc 5 mg Tablet] 5 mg PO DAILY 10/23/18 Metformin HCl 1,000 mg PO BID 10/23/18 Simvastatin [Zocor 20 mg Tablet] 20 mg PO QHS 10/23/18 Acetaminophen [Tylenol 325 mg Tablet] 650 mg PO Q4HP PRN tablet 10/25/18 Levofloxacin [Levaquin 500 mg Tablet] 500 mg PO DAILY 7 Days #7 tablet 10/25/18 Potassium Chloride 20 meq PO DAILY 30 Days #30 tab.er.prt 10/25/18 History of Present Illness Patient complains of: Shortness of breath History of Present Illness: DUC HERNANDEZ is a 72 year old male with lung cancer recently treated with chemotherapy. Several days prior to admission he began noticing a cough with fever. He did reach out to his oncologist and with the fever as well as leukopenia and immunosuppression from chemotherapy he was instructed to present to the emergency department. Evaluation in the emergency department revealed probable right upper lobe infiltrate with pancytopenia. Hospital Course Hospital Course: The patient actually had a fairly unremarkable hospital course. Initially his [place] was addressed with Accu-Cheks and sliding scale but he was returned to his metformin at discharge. He responded very well to the cefepime and during his hospitalization his white blood cell count improved somewhat. He is still exhibiting thrombocytopenia but his platelet count is stable. His blood pressure was stable and his amlodipine and statin therapy were continued. The patient feels much better. He does not require any oxygen therapy. He is discharged and has a follow-up with his oncologist next week. Physical Exam Vital Signs: Temp Pulse Resp BP Pulse Ox 98.1 F 71 14 110/52 L 94 10/25/18 15:44 10/25/18 15:44 10/25/18 15:44 10/25/18 15:44 10/25/18 15:44 Intake & Output 10/24/18 10/25/18 10/26/18 06:59 06:59 06:59 Intake Total 1050 4300 50 Output Total 1820 Balance 1050 2480 50 Weight 101.2 kg 102.7 kg General appearance: PRESENT: no acute distress, cooperative, well-developed Head exam: PRESENT: normocephalic Eye exam: PRESENT: conjunctiva pale. ABSENT: scleral icterus Mouth exam: PRESENT: moist, tongue midline Respiratory exam: PRESENT: clear to auscultation javad, symmetrical, unlabored. ABSENT: rales, rhonchi, wheezes Cardiovascular exam: PRESENT: RRR, +S1, +S2 GI/Abdominal exam: PRESENT: normal bowel sounds, soft. ABSENT: distended, tenderness Rectal exam: PRESENT: deferred Extremities exam: ABSENT: calf tenderness, pedal edema Musculoskeletal exam: PRESENT: ambulatory Neurological exam: PRESENT: alert, awake, oriented to person, oriented to place, oriented to time, oriented to situation, CN II-XII grossly intact Psychiatric exam: PRESENT: normal mood. ABSENT: agitated, anxious Focused psych exam: ABSENT: restlessness Results Laboratory Results: 10/25/18 06:43 10/25/18 06:43 10/25/18 10/25/18 06:43 06:43 WBC 7.5 RBC 2.89 L Hgb 9.3 L Hct 26.0 L MCV 90 MCH 32.1 MCHC 35.6 RDW 19.8 H Plt Count 83 L Seg Neutrophils % 76.8 Lymphocytes % 10.3 L Monocytes % 12.4 Eosinophils % 0.3 Basophils % 0.2 Absolute Neutrophils 5.8 Absolute Lymphocytes 0.8 Absolute Monocytes 0.9 Absolute Eosinophils 0.0 Absolute Basophils 0.0 Sodium 136.2 L Potassium 3.7 Chloride 104 Carbon Dioxide 23 Anion Gap 9 BUN 17 Creatinine 0.87 Est GFR ( Amer) > 60 Est GFR (Non-Af Amer) > 60 Glucose 123 H Calcium 8.5 Magnesium 2.1 Impressions: Chest X-Ray 10/24/18 00:00 IMPRESSION: Improving pneumonia left lower lobe. Qualifiers - * PATIENT BEING DISCHARGED WITH ANY OF THE FOLLOWING DIAGNOSIS: No Plan Discharge Plan: Discharge to home. Complete antibiotic therapy as ordered. Continue other med ications unchanged. Follow-up with oncologist next week at [facility]. Time Spent: Greater than 30 Minutes
== END 2018-10-25 17:00 | disposition home or self-care (01) | DRG 193 ==
LOC: ER 15:25 → EH 17:38 → 5 21:00
PROVIDERS: ADMIT Internal Medicine; ATTEND Internal Medicine
DX: J18.9 Pneumonia, unspecified organism (principal); D61.810 Antineoplastic chemotherapy induced pancytopenia; E11.9 Type 2 diabetes mellitus without complications; T45.1X5A Adverse effect of antineoplastic and immunosuppressive drugs, initial encounter; E87.6 Hypokalemia; E78.5 Hyperlipidemia, unspecified; I10 Essential (primary) hypertension; Z79.84 Long term (current) use of oral hypoglycemic drugs; Z85.46 Personal history of malignant neoplasm of prostate; Z85.51 Personal history of malignant neoplasm of bladder; Z87.891 Personal history of nicotine dependence; Z79.899 Other long term (current) drug therapy; Z92.25 Personal history of immunosuppression therapy; Z90.6 Acquired absence of other parts of urinary tract; Z90.2 Acquired absence of lung [part of]
CPT/HCPCS: 36415; 71045; 80048; 80053; 81001; 82962; 83605; 83735; 85025; 87040; 87086; 87088; 87186; 87804; 93005; 93010; 99291; J0692; J1815; J3370; J3490; J7030; J7060

== ENCOUNTER 2018-10-28 18:05 | Emergency (ER) | payer MEDICARE, BC ==
--- NOTE | 2018-10-28 18:54 | ER Document Report ---
ED Medical Screen (RME) - General Chief Complaint: Chest Pain Stated Complaint: CHEST PAIN Time Seen by Provider: 10/28/18 18:40 Primary Care Provider: RUBEN SINCLAIR NP [Primary Care Provider] - Follow up as needed Mode of Arrival: Ambulatory Information source: Patient Notes: 72-year-old male with a history of lung cancer presents emergency department with complaints of fever, chills, right chest pain, shortness of breath. Patient states that he was admitted to the hospital on Tuesday and discharged on Tuesday. He states that he received Vanco and cefepime inpatient. He was improving and he was discharged home on Levaquin. Patient states that this antibiotic is not helping. Patient contacted his oncologist at [facility] and was told to go to the emergency department for treatment. Patient states that his last chemotherapy was 2 weeks ago. I have greeted and performed a rapid initial assessment of this patient. A comprehensive ED assessment and evaluation of the patient, analysis of test results and completion of the medical decision making process will be conducted by additional ED providers. PHYSICAL EXAMINATION: GENERAL: No acute distress. HEAD: Atraumatic, normocephalic. EYES: Pupils equal round extraocular movements intact, conjunctiva are normal. ENT: Nares patent NECK: Normal range of motion LUNGS: No respiratory distress Musculoskeletal: Normal range of motion NEUROLOGICAL: Normal speech, normal gait. PSYCH: Normal mood, normal affect. SKIN: Warm, Dry, normal turgor, no rashes or lesions noted. TRAVEL OUTSIDE OF THE [place] IN LAST 30 DAYS: No - Related Data Allergies/Adverse Reactions: No Known Allergies Allergy (Verified 10/28/18 18:39) Past Medical History - Social History Chew tobacco use (# tins/day): No Frequency of alcohol use: None Drug Abuse: None - Past Medical History Cardiac Medical History: Reports: Hx Hypercholesterolemia, Hx Hypertension Endocrine Medical History: Reports: Hx Diabetes Mellitus Type 2 Renal/ Medical History: Denies: Hx Peritoneal Dialysis Malignancy Medical History: Reports Hx Lung Cancer Psychiatric Medical History: Denies: Hx Depression Past Surgical History: Reports: Hx Genitourinary Surgery - bladder/prost ate/urethra, Other - ORIF ankle, knee surgery, prostatectomy, bladder surgery, lung resection Physical Exam - Vital signs Vitals: Temp Pulse Resp BP Pulse Ox 98.6 F 93 20 124/66 96 10/28/18 18:26 10/28/18 18:26 10/28/18 18:26 10/28/18 18:26 10/28/18 18:26 Course - Vital Signs Vital signs: Temp Pulse Resp BP Pulse Ox 98.6 F 93 20 124/66 96 10/28/18 18:26 10/28/18 18:26 10/28/18 18:26 10/28/18 18:26 10/28/18 18:26 Doctor's Discharge - Discharge Referrals: RUBEN SINCLAIR NP [Primary Care Provider] - Follow up as needed
[2018-10-28 19:18] LABS: ABSOLUTE LYMPHOCYTES (AUTO) 0.7 10^3/uL (0.5-4.7); ABSOLUTE MONOCYTES (AUTO) 0.7 10^3/uL (0.1-1.4); ABSOLUTE NEUT (AUTO) 5.4 10^3/uL (1.7-8.2); BASOPHILS % (AUTO) 0.2 % (0-2); EOSINOPHILS % (AUTO) 0.3 % (0-6); HEMATOCRIT 31.2 % (37.9-51.0); HEMOGLOBIN 10.8 g/dL (13.5-17.0); MEAN CORPUSCULAR HEMOGLOBIN 31.5 pg (27.0-33.4); MEAN CORPUSCULAR HGB CONC 34.7 g/dL (32.0-36.0); MEAN CORPUSCULAR VOLUME 91 fl (80-97); MONOCYTES % (AUTO) 10.5 % (3-13); PLATELET COUNT 166 10^3/uL (150-450); RED BLOOD COUNT 3.45 10^6/uL (4.35-5.55); RED CELL DISTRIBUTION WIDTH 19.8 % (11.5-14.0); TOTAL CELLS COUNTED % (AUTO) 100 %; WHITE BLOOD COUNT 6.8 10^3/uL (4.0-10.5)
[2018-10-28 19:40] LABS: ALANINE AMINOTRANSFERASE 50 U/L (21-72); ALBUMIN 4.5 g/dL (3.5-5.0); ALKALINE PHOSPHATASE 72 U/L (38-126); ANION GAP 14 (5-19); ASPARTATE AMINO TRANSFERASE 35 U/L (17-59); BILIRUBIN,DIRECT 0.2 mg/dL (0.0-0.4); BILIRUBIN,TOTAL 0.7 mg/dL (0.2-1.3); BLOOD UREA NITROGEN 22 mg/dL (7-20); CALCIUM 9.5 mg/dL (8.4-10.2); CARBON DIOXIDE 28 mmol/L (22-30); CHLORIDE 96 mmol/L (98-107); GLUCOSE 191 mg/dL (75-110); POTASSIUM 3.9 mmol/L (3.6-5.0); SODIUM 138.4 mmol/L (137-145); TOTAL PROTEIN 7.2 g/dL (6.3-8.2)
--- NOTE | 2018-10-28 20:07 | RADIOLOGY REPORT (SQ) ---
EXAM DESCRIPTION: XR CHEST 1 VIEW COMPLETED DATE/TME: 10/28/2018 18:50 CLINICAL HISTORY: 72 years, Male, cough, chest pain COMPARISON: 10/24/2018 chest NUMBER OF VIEWS: 1 TECHNIQUE: Portable chest LIMITATIONS: None. FINDINGS: Cardiomegaly. Osteopenia. [id number] catheter in place. Nodular opacity in the right hilar region. Underlying COPD. No pneumothorax. Elevation left hemidiaphragm. IMPRESSION: Little change from the prior. Nodular opacity in the right hilar region. Osteopenia. COPD copyright 2010 [employer]- All Rights Reserved
--- NOTE | 2018-10-28 20:11 | EKG REPORT ---
SEVERITY:- BORDERLINE ECG - SINUS RHYTHM PROBABLE LEFT ATRIAL ABNORMALITY : Confirmed by: Rebeka Mathews 28-Oct-2018 20:11:07
--- NOTE | 2018-10-28 22:46 | RADIOLOGY REPORT (SQ) ---
EXAM DESCRIPTION: CT CHEST ANGIOGRAPHY WITHOUT THEN WITH IV CONTRAST COMPLETED DATE/TME: 10/28/2018 21:46 CLINICAL HISTORY: 72 years, Male, pleuritic chest pain, cancer, r/o PE COMPARISON: Chest x-ray from today's date. TECHNIQUE: 633 Images stored on PACS. All CT scanners at this facility use dose modulation, iterative reconstruction, and/or weight based dosing when appropriate to reduce radiation dose to as low as reasonably achievable (ALARA). Axial CTA images were obtained with coronal and sagittal MIPS reconstructions. [facility]: Dose Right [facility]: CareDose [facility]: Dose Right [facility]: Teradose 4D [facility]: MediaScrape LIMITATIONS: None. FINDINGS: The mediastinal vasculature enhances normally. No intraluminal filling defect to suggest pulmonary embolus. Negative for thoracic aortic aneurysm or dissection. Limited evaluation of the upper abdomen shows cholelithiasis. Osseous structures are grossly intact. No pneumothorax. Emphysematous changes in the upper lobes and apices. Right perihilar opacity seen on plain film corresponds to a groundglass opacity on CT, likely reflecting pneumonitis. A slightly more solid nodular component, measuring 4.3 mm is present. The visualized airways are patent. No effusion. Right hilar adenopathy, measuring 1.1 x 1.8 cm. IMPRESSION: Groundglass right perihilar opacity, as above with an enlarged right hilar node. Findings likely represent pneumonitis with reactive adenopathy. Recommend follow-up to resolution. Negative for pulmonary embolus, thoracic aortic aneurysm, or dissection. Underlying emphysema. 4.3 mm nodule in the right perihilar region. Please refer to below Fleischner Society criteria for follow-up. Cholelithiasis. 2017 Fleischner Society Recommendations for Single Solid Lung Nodule Follow-Up based on size (average of long- and short-axis diameters) <6 mm Low-Risk Patient: No routine follow-up <6 mm High-Risk Patient: Optional CT at 12 months 6-8 mm Low-Risk Patient: CT at 6-[address] at 18-24 months 6-8 mm High-Risk Patient: CT at 6-[address] at 18-24 months >8 mm Low-Risk Patient: Consider CT, PET/CT or tissue sampling at 3 months >8 mm High-Risk Patient: Same as for low-risk patient TECHNICAL DOCUMENTATION: Quality ID # [id number]: Final reports with documentation of one or more dose reduction techniques (e.g., Automated exposure control, adjustment of the mA and/or kV according to patient size, use of iterative reconstruction technique) copyright 2011 [employer]- All Rights Reserved
[2018-10-28 23:19] VITALS: BP 136/80
[2018-10-28] MEDS ORDERED: SULFAMETHOXAZOLE/TRIMETHOPRIM 800-160 MG TABLET PO ONE (23:35)
--- NOTE | 2018-10-28 23:58 | ER Document Report ---
Entered by CONCEPCIÓN POOLE SCRIBE 10/28/182042 Acting as scribe for:ELLIOTT UNGER DO ED General - General Chief Complaint: Chest Pain Stated Complaint: CHEST PAIN Time Seen by Provider: 10/28/18 18:40 Primary Care Provider: RUBEN SINCLAIR NP [Primary Care Provider] - Follow up as needed Mode of Arrival: Ambulatory Information source: Patient Notes: Patient is a 72-year-old male with metastatic lung cancer, HTN, diabetes presents to the emergency department complaining of chest pain and fevers onset approximately 3 days ago. Patient states he was recently admitted to the hospital for pneumonia on 10/23/2018 and was discharged on 10/25/2018. Patient states during his admission he was given and vancomycin and cefepime. He states upon discharge she was prescribed Levaquin and he feels that Levaquin is not working. He states he initially felt well after discharge but developed a fever later that evening and continued to have intermittent fevers over the last few days. He also complains of chest pain with deep breathing onset this morning. He describes this as a "light pain with breathing". Of significance, patient states he was placed on a heart monitor in September due to having irregular beats. He further states he has an appointment on Tuesday pertaining this. Patients oncologist is Dr. Lyndsay Bang at [facility], phone number (nurses lines): [phone]. Patient last received chemotherapy approximately 2 weeks ago. TRAVEL OUTSIDE OF THE [place] IN LAST 30 DAYS: No - Related Data Allergies/Adverse Reactions: No Known Allergies Allergy (Verified 10/28/18 18:39) Past Medical History - General Information source: Patient - Social History Smoking Status: Former Smoker Chew tobacco use (# tins/day): No Frequency of alcohol use: None Drug Abuse: None Family History: None Patient has suicidal ideation: No Patient has homicidal ideation: No - Past Medical History Cardiac Medical History: Reports: Hx Hypercholesterolemia, Hx Hypertension Endocrine Medical History: Reports: Hx Diabetes Mellitus Type 2 Malignancy Medical History: Reports Hx Lung Cancer Past Surgical History: Reports: Hx Genitourinary Surgery - bladder/prostate/urethra, Other - ORIF ankle, knee surgery, prostatectomy, bladder surgery, lung resection Review of Systems - Review of Systems Constitutional: See HPI, Fever, Malaise EENT: No symptoms reported Cardiovascular: See HPI, Chest pain Respiratory: See HPI, Hurts to breathe Gastrointestinal: No symptoms reported Genitourinary: No symptoms reported Male Genitourinary: No symptoms reported Musculoskeletal: No symptoms reported Skin: No symptoms reported Hematologic/Lymphatic: No symptoms reported Neurological/Psychological: No symptoms reported -: Yes All other systems reviewed and negative Physical Exam - Vital signs Vitals: Temp Pulse Resp BP Pulse Ox 98.6 F 93 20 124/66 96 10/28/18 18:26 10/28/18 18:26 10/28/18 18:26 10/28/18 18:26 10/28/18 18:26 - Notes Notes: GENERAL: Alert, interacts well. No acute distress. HEAD: Normocephalic, atraumatic. EYES: Pupils equal, round, and reactive to light. Extraocular movements intact. ENT: Oral mucosa moist, tongue midline. NECK: Full range of motion. Supple. Trachea midline. LUNGS: Clear to auscultation bilaterally, no wheezes, rales, or rhonchi. No respiratory distress. HEART: Regular rate and rhythm. 2/6 systolic murmur. No gallops or rubs. ABDOMEN: Soft, non-tender. Non-distended. Bowel sounds present in all 4 quadrants. EXTREMITIES: Moves all 4 extremities spontaneously. No edema, radial and dorsalis pedis pulses 2/4 bilaterally. No cyanosis. NEUROLOGICAL: Alert and oriented x3. Normal speech. PSYCH: Normal affect, normal mood. SKIN: Warm, dry, normal turgor. No rashes or lesions noted. Course - Re-evaluation Re-evalutation: 10/28/18 23:02 Patient blood cultures were negative, urine culture grew out Providencia rettgeri and Alcaligenes species. They were both sensitive to Levaquin however they are both prone to rapidly developing resistance, at this point I will check another urinalysis and add on Bactrim. 10/28/18 23:35 CBC shows normal white blood cell count, anemia with a hgb of 10.8, normal platelets at 166. CMP grossly unremarkable, troponin undetectable, Lactic acid normal. CXR shows nodule, but no pneumonia. CTA chest ordered to rule out PE after discussing with Dr. Bang, the patient's oncologist at [facility]. CTA does not show PE, it does show some ground glass opacity in the RUL. Patient currently not hypotensive, tachycardic or hypoxic. No indication for hospitalization. Dr. Bang states that the patient has not had chemo in a long enough time that he should be able to mount an immune response and have an elevated white blood cell count in the setting of serious bacterial infection. I will continue with plan to add BActrim to current Levaquin dosing and discharge to home. Discussed plan with patient, , brothers and daughter, all are in agreement. - Vital Signs Vital signs: Temp Pulse Resp BP Pulse Ox 98.6 F 93 18 136/80 H 96 10/28/18 18:26 10/28/18 18:26 10/28/18 23:01 10/28/18 23:01 10/28/18 23:01 - Laboratory Result Diagrams: 10/28/18 19:00 10/28/18 19:00 Laboratory results interpreted by me: 10/28/18 10/28/18 19:00 19:00 RBC 3.45 L Hgb 10.8 L Hct 31.2 L RDW 19.8 H Seg Neutrophils % 79.0 H Lymphocytes % 10.0 L Chloride 96 L BUN 22 H Glucose 191 H - EKG Interpretation by Ma EKG shows normal: Sinus rhythm Rate: Normal - 90 Rhythm: NSR P Waves: LAE Additional EKG results interpreted by nh: 10/28/18 23:[address] elevations or depressions, no T wave inversions. Discharge - Discharge Clinical Impression: UTI (urinary tract infection) Qualifiers: Urinary tract infection type: site unspecified Hematuria presence: without he maturia Qualified Code(s): N39.0 - Urinary tract infection, site not specified Right upper lobe pneumonia Qualifiers: Pneumonia type: due to unspecified organism Qualified Code(s): J18.1 - Lobar pneumonia, unspecified organism Condition: Stable Disposition: HOME, SELF-CARE Additional Instructions: Today your bloodwork was significantly improved. Your white blood cell count was normal. Your platelets have normalized. Your chest x-ray did not show a pneumonia anymore but your CT scan of your chest showed a small remainder of the pneumonia. The CT scan your chest did not show a blood clot. The cancer appears unchanged since last week. I have added Bactrim to your medications. Please take the Bactrim as directed until it is gone. Please continue taking the Levaquin as well. Please return to the emergency department for difficulty breathing, confusion or any new or concerning symptoms. Prescriptions: Sulfamethoxazole/Trimethoprim [Bactrim Ds Tablet] 1 each PO BID #14 tablet Referrals: RUBEN SINCLAIR NP [Primary Care Provider] - Follow up as needed Scribe Attestation: 10/28/18 23:57 I personally performed the services described in the documentation, reviewed and edited the documentation which was dictated to the scribe in my presence, and it accurately records my words and actions. I personally performed the services described in the documentation, reviewed and edited the documentation which was dictated to the scribe in my presence, and it accurately records my words and actions.
[2018-10-29 00:32] LABS: APPEARANCE,URINE SLIGHTLY-CLOUDY; BILIRUBIN,URINE NEGATIVE (NEGATIVE); COLOR,URINE STRAW; GLUCOSE, URINE NEGATIVE (NEGATIVE); KETONES,URINE NEGATIVE (NEGATIVE); LEUKOCYTE ESTERASE,URINE NEGATIVE (NEGATIVE); NITRITE,URINE NEGATIVE (NEGATIVE); PROTEIN,URINE NEGATIVE (NEGATIVE); URINE SPECIFIC GRAVITY 1.033; UROBILINOGEN,URINE NEGATIVE mg/dL (<2.0)
== END 2018-10-29 00:25 | disposition home or self-care (01) ==
LOC: ER 18:05
DX: J18.1 Lobar pneumonia, unspecified organism (principal); N39.0 Urinary tract infection, site not specified; R07.9 Chest pain, unspecified; R50.9 Fever, unspecified; I10 Essential (primary) hypertension; E11.9 Type 2 diabetes mellitus without complications
CPT/HCPCS: 93005; 99284; 36415; 87040; 87086; 85025; 80053; 81001; 84484; 83605; 71045; 71275; 93010; A9270

== ENCOUNTER 2020-05-08 08:04 | Emergency (ER) | payer MEDICARE, BC ==
[2020-05-08 08:13] VITALS: BP 156/66
[2020-05-08] MEDS ORDERED: LIDOCAINE 1% INJ-PF (10 MG/ML) 30 ML SDV ONE (10:43)
[2020-05-08] MEDS ORDERED: LIDOCAINE 1% INJ-PF (10 MG/ML) 30 ML SDV INJ ONE (10:52)
[2020-05-08] MEDS ORDERED: DIPH/PERTUSS(ACELL)/TETANUS VAC/PF 0.5 ML SYR (>=10YO) IM ONE (11:03)
--- NOTE | 2020-05-08 11:08 | ER Document Report ---
ED General - General Chief Complaint: Hand Injury Stated Complaint: FINGER INJURY Time Seen by Provider: 05/08/20 10:29 Primary Care Provider: RUBEN SINCLAIR NP [Primary Care Provider] - Follow up as needed Mode of Arrival: Ambulatory Information source: Patient TRAVEL OUTSIDE OF THE [place] IN LAST 30 DAYS: No - HPI Notes: Patient complains of left hand pain. He states he was fishing when a fishhook went into his left hand. He complains of constant pain. It is mild to moderate. It is worse with his hand is moved and better if left alone. No significant radiation of the pain. It is a sharp pain. He denies any other injuries or problems. States he does not know when his last tetanus was. - Related Data Allergies/Adverse Reactions: No Known Allergies Allergy (Verified 10/28/18 18:39) Past Medical History - General Information source: Patient - Social History Smoking Status: Never Smoker Frequency of alcohol use: None Drug Abuse: None Family History: None - Past Medical History Cardiac Medical History: Reports: Hx Hypercholesterolemia, Hx Hypertension Endocrine Medical History: Reports: Hx Diabetes Mellitus Type 2 Renal/ Medical History: Denies: Hx Peritoneal Dialysis Malignancy Medical History: Reports Hx Lung Cancer Psychiatric Medical History: Denies: Hx Depression Past Surgical History: Reports: Hx Genitourinary Surgery - bladder/prostate/urethra, Other - ORIF ankle, knee surgery, prostatectomy, bladder surgery, lung resection Review of Systems - Review of Systems Constitutional: denies: Chills, Fever Cardiovascular: denies: Chest pain, Palpitations Respiratory: denies: Cough, Short of breath -: Yes All other systems reviewed and negative Physical Exam - Vital signs Vitals: Temp Pulse Resp BP Pulse Ox 97.5 F 74 18 156/66 H 100 05/08/20 08:09 05/08/20 08:09 05/08/20 08:09 05/08/20 08:09 05/08/20 08:09 Interpretation: Hypertensive - General General appearance: Appears well, Alert - HEENT Head: Normocephalic, Atraumatic Eyes: Normal Pupils: PERRL - Respiratory Respiratory status: No respiratory distress Chest status: Nontender Breath sounds: Normal Chest palpation: Normal - Cardiovascular Rhythm: Regular Heart sounds: Normal auscultation Murmur: No - Abdominal Inspection: Normal Distension: No distension Bowel sounds: Normal Tenderness: Nontender Organomegaly: No organomegaly - Back Back: Normal, Nontender - Extremities General upper extremity: Normal color, Normal temperature, Other - Patient has a trouble fishhook embedded into the palmar aspect of the left thenar eminence as well as a second hook embedded into the palmar aspect of the left thumb between the metacarpophalangeal joint and the PIP joint. General lower extremity: Normal inspection, Nontender, Normal color, Normal ROM, Normal temperature, Normal weight bearing. No: Collins's sign - Neurological Neuro grossly intact: Yes Cognition: Normal Orientation: AAOx4 Laughlin Coma Scale Eye Opening: Spontaneous Laughlin Coma Scale Verbal: Oriented Haley Coma Scale Motor: Obeys Commands Haley Coma Scale Total: 15 Speech: Normal Motor strength normal: LUE, RUE, LLE, RLE Sensory: Normal - Psychological Associated symptoms: Normal affect, Normal mood - Skin Skin Temperature: Warm Skin Moisture: Dry Skin Color: Normal Course - Re-evaluation Re-evalutation: 05/08/20 11:05 I anesthetized the area. I used wire cutters to cut the trouble hook. I then made a small incision with an 11 blade into the palm to remove the one hook. I then was able to push the other hook through the left thumb to remove it. - Vital Signs Vital signs: Temp Pulse Resp BP Pulse Ox 97.5 F 74 18 156/66 H 100 05/08/20 08:09 05/08/20 08:09 05/08/20 08:09 05/08/20 08:09 05/08/20 08:09 Procedures - Additional Procedures Dressing change Time performed: 11:07 Additional Procedures: Other - Fish hook removal. I anesthetized the 2 different areas with 1% lidocaine without epinephrine. I used approximately 3 cc of lidocaine. I used wire cutters to cut the hook at the base. I then used a 11 blade scalpel to make a small incision in the palm to remove the first part of the hook. I was able to push the second part of the hook through the thumb and remove it. Patient tolerated this well and there were no complications. Discharge - Discharge Clinical Impression: Fish hook injury of finger of left hand Qualifiers: Encounter type: initial encounter Qualified Code(s): S69.92XA - Unspecified injury of left wrist, hand and finger(s), initial encounter Fish hook injury of hand Qualifiers: Encounter type: initial encounter Laterality: left Qualified Code(s): S69.92XA - Unspecified injury of left wrist, hand and finger(s), initial encounter Condition: Stable Disposition: HOME, SELF-CARE Instructions: Foreign Body ([facility]) Prescriptions: Amoxicillin/Potassium Clav [Augmentin 875-125 Tablet] 1 tab PO Q12 5 Days #10 tablet Referrals: RUBEN SINCLAIR NP [Primary Care Provider] - Follow up as needed
== END 2020-05-08 11:28 | disposition home or self-care (01) ==
LOC: ER 08:04
PROC: 0JCK0ZZ Extirpation of Matter from Left Hand Subcutaneous Tissue and Fascia, Open Approach (ICD-10-PCS; principal; 2020-05-08)
DX: S60.552A Superficial foreign body of left hand, initial encounter (principal); W22.8XXA Striking against or struck by other objects, initial encounter; I10 Essential (primary) hypertension; E11.9 Type 2 diabetes mellitus without complications
CPT/HCPCS: 99283; 90471; 90715; 10120; J3490